=== PATIENT | female | born 1955 | race Caucasian/White ===

== ENCOUNTER 2024-07-12 13:32 | Outpatient (OUT) | payer MEDICARE, SELFPAY ==
--- NOTE | 2024-07-12 13:20 | PM.WCHP ---
Wound Care H&P: HPI History of Present Illness Narrative: Ms. Cronin is a very pleasant 68-year-old female with history of previous ankle trauma who presents for routine nail care. The patient states her toenails are thick and she is unable to trim them on her own. She feels as though the great toes are ingrown in the medial borders bilaterally. Exam Narrative: Exam Narrative: Derm: Skin is diffusely dry, thin, and shiny. Toenails 1 through 10 are elongated with ingrowing of the great toenails and the medial nail borders. No evidence of paronychia. Toenails 2 through 5 are thickened and mycotic on both feet with subungual debris. Vascular: DP pulses are 2/4 bilaterally. PT pulses are nonpalpable bilaterally. Capillary refills less than 3 seconds and toes are nice and warm to touch. Superficial varicosities are present. There is 3+ nonpitting edema of bilateral lower legs and ankles. Digital hair is absent bilaterally. Neuro: Protective sensation intact to 5/5 areas tested with a monofilament on each foot. Vibratory sensation is intact bilaterally. Achilles deep tendon reflex is 1+ bilaterally. Musculoskeletal: Healed surgical scars noted on bilateral ankles. No pain with palpation of the feet or ankles. Assessment and Plan Assessment and Plan (1) Tinea unguium: (2) Diminished pulses in lower extremity: (3) Nail dystrophy: Plan Routine nail care performed. Follow-up in 3 months or as needed. Acute Procedures Podiatry Nail Debridement Class B Findings Absent posterior tibial pulse: bilateral Advanced trophic changes as evidenced by any three of the following: decreased hair growth, nail changes (thickening) and skin texture (thin or shiny) Class C Findings Claudication: No Temperature changes: No Edema: Yes Nail debridement paresthesia (abnormal spontaneous sensations in the feet): No Burning: No Qualifies If: Qualifiers If:: A patient qualifies for nail debridement if they have: 1 class A finding (Q7) 2 class B findings (Q8) OR 1 class B & 2 class C findings in addition to a primary condition (Q9) Nail Procedure Nail Procedure Nail procedure: other (Toenail debridement toenails 1 through 10) Location (toes): left and right Procedure successful: Yes Patient tolerated procedure: well and no complications Additional comments: Toenails 1 through 10 were sharply debrided with nail nippers without incident. The nails were trimmed in a slant back fashion on both great toes medial nail borders.
== END 2024-07-12 13:33 | disposition home or self-care (01) ==
LOC: WC 13:32
PROVIDERS: PCP Physician Assistant; Visit Provider Physician Assistant
DX: B35.1 Tinea unguium (principal); L60.3 Nail dystrophy; L60.8 Other nail disorders; I70.213 Atherosclerosis of native arteries of extremities with intermittent claudication, bilateral legs
CPT/HCPCS: 11721

== ENCOUNTER 2024-10-04 14:38 | Outpatient (OUT) | payer MEDICARE, SELFPAY ==
--- NOTE | 2024-10-04 15:10 | PM.WCHP ---
Wound Care H&P: HPI History of Present Illness Narrative: Ms. Cronin is a very pleasant 68-year-old female with history of previous ankle trauma who presents for routine nail care. The patient states her toenails are thick and she is unable to trim them on her own due to stiffness in the left ankle. She complains of a painful callus beneath the 5th met head on the left which she pares with an deshaun board. Exam Narrative: Exam Narrative: Derm: Skin is diffusely dry, thin, and shiny. Toenails 1 through 10 are elongated with ingrowing of the great toenails and the medial nail borders. No evidence of paronychia. Toenails 2 through 5 are thickened and mycotic on both feet with subungual debris. Thin callus beneath the 5th met head on the left. Intact skin at base. Vascular: DP pulses are 2/4 bilaterally. PT pulses are nonpalpable bilaterally. Capillary refills less than 3 seconds and toes are nice and warm to touch. Superficial varicosities are present. There is 3+ nonpitting edema of bilateral lower legs and ankles. Digital hair is absent bilaterally. Neuro: Protective sensation intact to 5/5 areas tested with a monofilament on each foot. Vibratory sensation is intact bilaterally. Achilles deep tendon reflex is 1+ bilaterally. Musculoskeletal: Healed surgical scars noted on bilateral ankles. No pain with palpation of the feet or ankles. Assessment and Plan Assessment and Plan (1) Tinea unguium: (2) Diminished pulses in lower extremity: (3) Nail dystrophy: (4) Bilateral lower extremity edema: Plan Routine nail care performed. Follow-up in 3 months or as needed. Acute Procedures Podiatry Nail Debridement Class B Findings Absent posterior tibial pulse: bilateral Advanced trophic changes as evidenced by any three of the following: decreased hair growth, nail changes (thickening) and skin texture (thin or shiny) Class C Findings Claudication: No Temperature changes: No Edema: Yes Nail debridement paresthesia (abnormal spontaneous sensations in the feet): No Burning: No Qualifies If: Qualifiers If:: A patient qualifies for nail debridement if they have: 1 class A finding (Q7) 2 class B findings (Q8) OR 1 class B & 2 class C findings in addition to a primary condition (Q9) Nail Procedure Nail Procedure Nail procedure: other (Toenail debridement toenails 1 through 10) Location (toes): left and right Procedure successful: Yes Patient tolerated procedure: well and no complications Additional comments: Toenails 1 through 10 were sharply debrided with nail nippers without incident. Callus beneath the 5th met head on the left was pared using a #15 blade without incident. Skin is intact at base. She noted pain relief post procedure.
== END 2024-10-04 14:39 | disposition home or self-care (01) ==
LOC: WC 14:38
PROVIDERS: Visit Provider Physician Assistant
DX: B35.1 Tinea unguium (principal); R29.898 Other symptoms and signs involving the musculoskeletal system; L60.8 Other nail disorders; R60.0 Localized edema; L84 Corns and callosities
CPT/HCPCS: 11721

== ENCOUNTER 2025-01-03 13:31 | Outpatient (OUT) | payer MEDICARE, SELFPAY ==
--- OUTSIDE RECORDS SUMMARY | 2024-12-19 10:03 | XMS_ITS | Encounter Summary ---
Author Organization [facility] Address [address] [place] [address] Phone Care Team Providers Care Sleeper Cutter Name Role Phone Margarita Lechuga DO Primary Care Provider [phone] Reason for Referral * Imaging (Routine) - AuthorizedSpecialtyDiagnoses / ProceduresReferred By ContactReferred To ContactRadiology Diagnoses Primary osteoarthritis of right hip Tear of gluteus medius tendon, initial encounter Procedures MR hip right wo IV contrast Adelaide Hearn DO [address] [place] [address] Phone: tel: fax: Referral IDStatusReasonStart DateExpiration DateVisits RequestedVisits [id number] Perform Procedure Reason for Visit * Imaging (Routine) - AuthorizedSpecialtyDiagnoses / ProceduresReferred By ContactReferred To ContactRadiology Diagnoses Primary osteoarthritis of right hip Tear of gluteus medius tendon, initial encounter Procedures MR hip right wo IV contrast Adelaide Hearn DO [address] [place] [address] Phone: tel: fax: Referral IDStatusReasonStart DateExpiration DateVisits RequestedVisits [id number] Perform Procedure [id number] Encounter Details DateTypeDepartmentCare Team (Latest Contact Info)Kdirqypmkeo58/22/2025 11:03 AM EDT - 12/19/2024 11:59 PM EDTHospital Encounter [facility] [place] [address] [place] [address] Primary osteoarthritis of right hip; Tear of gluteus medius tendon, initial encounter Discharge Disposition: Home Social History Tobacco UseTypesPacks/DayYears UsedDateSmoking Tobacco: NeverSmokeless Tobacco: NeverAlcohol UseStandard Drinks/WeekCommentsNot Currently0 (1 standard drink = 0.6 oz pure alcohol)CommentsUnknownSex and Gender InformationValueDate RecordedSex Assigned at GolgcOquuei66/12/2024 7:26 PM EDTLegal SexFemale 01/22/2022 4:26 PM ESTGender UbmaehvjOaaorl04/12/2024 7:26 PM EDTSexual OrientationNot on filedocumented as of this encounter Functional Status * Communicable Disease ScreeningQuestionAnswerDate of AssessmentAuthorDo you have any of the following new or worsening symptoms?None of these12/19/2024 11:01 AM Mallorie Hebert documented as of this encounter Medications at Time of Discharge MedicationSigDispense QuantityRefillsLast FilledStart DateEnd Date atorvastatin (Lipitor) 40 mg tablet Take 1 tablet (40 mg) by mouth once daily. calcium citrate/vitamin D3 (CALCET CREAMY BITES ORAL) Take 2 tablets by mouth early in the morning.. diclofenac sodium (Voltaren) 1 % gel gel Apply 4.5 inches (1 Application) topically once daily as needed. diphenoxylate-atropine (LomotiL) 2.5-0.025 mg tablet Take 1 tablet by mouth once daily as needed.02/09/2022 ergocalciferol (Vitamin D-2) 1.25 MG (70397 UT) capsule furosemide (Lasix) 40 mg tablet Take 1 tablet (40 mg) by mouth once daily.07/17/2024 hydrocortisone (Proctozone-HC) 2.5 % rectal cream hydroxychloroquine (Plaquenil) 200 mg tablet Take 1 tablet (200 mg) by mouth once daily. loperamide (Imodium) 2 mg capsule Take 1 capsule (2 mg) by mouth once daily.06/02/2023 metoprolol tartrate (Lopressor) 25 mg tablet Take 1 tablet (25 mg) by mouth 2 times a day. multivitamin with minerals (Adults Multivitamin) tablet Take 1 tablet by mouth once daily.02/09/2022 naproxen sodium (Aleve) 220 mg capsule pantoprazole (ProtoNix) 40 mg EC tablet Take 1 tablet (40 mg) by mouth once daily in the morning. Take before meals. Do not crush, chew, orsplit. rOPINIRole (Requip) 0.5 mg tablet Take 3 tablets (1.5 mg) by mouth 2 times a day. sertraline (Zoloft) 100 mg tablet 07/17/2024documented as of this encounter Plan of Treatment DateTypeDepartmentCare Team (Latest Contact Info)Egjzsjncban42/07/2025 10:20 AM ESTOffice Visit [address] [address] Adelaide Hearn, DO [address] [facility] [address] [place] [address] 01/08/2025 11:30 AM ESTTreatment [address] [place] [address] [place] [address] [facility] [address] [place] [address] 01/15/2025 11:30 AM ESTTreatment [facility] [address] [facility] [address] [place] [address] [place] [address] [facility] [address] [place] [address] 02/12/2025 9:20 AM ESTOffice Visit [place] [address] [facility] 5th [place] [address] [place] [address] Department [place] [address] documented as of this encounter Procedures Procedure NamePriorityDate/TimeAssociated DiagnosisCommentsMR HIP RIGHT WO IV RYFRNLQSLrnlvtb31/22/2025 12:48 PM EDT Primary osteoarthritis of right hip Tear of gluteus medius tendon, initial encounter documented in this encounter Results * MR hip right wo IV contrast (12/19/2024 12:48 PM EDT)Anatomical Region LateralityModalityMusculoskeletal, HipRightMagnetic ResonanceSpecimen (Source) Anatomical Location / LateralityCollection Method / VolumeCollection Time Received Time12/19/2024 2:58 PM EDT1 2:58 PM EDT Impressions 12/19/2024 2:56 PM EDT 1. Severe right hip osteoarthrosis with subchondral insufficiency fracture. 2. Trace right hip joint effusion. 3. Mild left hip osteoarthrosis. ? I personally reviewed the images/study and I agree with the findings as stated. This study was interpreted at [facility], [place], [place]. ?? MACRO: None ?? Signed by: Tristan Carpenter 12/19/2024 2:56 PM Dictation workstation: ?? [id number] Narrative 12/19/2024 2:56 PM EDT Interpreted By: Tristan Carpenter and Nakamoto Kent STUDY: MRI of the pelvis and right hip ??without IV contrast; ??12/19/2024 12:48 pm ?? INDICATION: Signs/Symptoms:glute med tendon tear. ?? ,M16.11 Unilateral primary osteoarthritis, right hip,S76.019A Strain of muscle, fascia and tendon of unspecified hip, initial encounter ?? COMPARISON: Right hip radiograph 08/14/2024, CT abdomen and pelvis 11/21/2022. ?? ACCESSION NUMBER(S): [id number] ?? ORDERING CLINICIAN: ADELAIDE HEARN ?? TECHNIQUE: MR imaging of the pelvis and right hip was obtained ??without IV contrast. ?? FINDINGS: TENDONS: The insertions of the gluteus medius and gluteus minimus tendons are normal. The insertion of the iliopsoas tendon is normal. The visualized hamstring tendon origin is normal. The adductor tendons are intact. ?? JOINTS: The hip joint articular cartilage demonstrates moderate to severe thinning of the right and mild thinning of the left. A trace right hip joint effusion is noted. Truncation of the right anterior superior acetabular labrum. There is no evidence of avascular necrosis. ?? OSSEOUS STRUCTURES: No focal marrow replacing lesions are identified. There is a linear focus of T1 hypointense signal along the right femoral head (series 6, image 27) with associated slight subchondral flattening. There is associated surrounding T2 hyperintense signal within the right femoral head (series 5, image 27). Findings are suggestive of a subchondral insufficiency fracture. ?? SOFT TISSUES: No muscle atrophy or tear is seen. ?? INTERNAL ORGANS: Evaluation of the internal organs of the pelvis is limited on this small field of view study tailored for evaluation of the musculoskeletal system. No gross abnormality is seen in the pelvic organs. Stable prominent inguinal lymph nodes measuring up to 1.0 cm that are stable compared to prior CT abdomen and pelvis 11/21/2022. ?? Procedure Note Tristan Carpenter MD - 12/19/2024 Interpreted By: Tristan Carpenter and Nakamoto Kent STUDY: MRI of the pelvis and right hip without IV contrast; 12/19/2024 12:48 pm INDICATION: Signs/Symptoms:glute med tendon tear. ,M16.11 Unilateral primary osteoarthritis, right hip,S76.019A Strain of muscle, fascia and tendon of unspecified hip, initial encounter COMPARISON: Right hip radiograph 08/14/2024, CT abdomen and pelvis 11/21/2022. ACCESSION NUMBER(S): [id number] ORDERING CLINICIAN: ADELAIDE HEARN TECHNIQUE: MR imaging of the pelvis and right hip was obtained without IV contrast. FINDINGS: TENDONS: The insertions of the gluteus medius and gluteus minimus tendons are normal. The insertion of the iliopsoas tendon is normal. The visualized hamstring tendon origin is normal. The adductor tendons are intact. JOINTS: The hip joint articular cartilage demonstrates moderate to severe thinning of the right and mild thinning of the left. A trace right hip joint effusion is noted. Truncation of the right anterior superior acetabular labrum. There is no evidence of avascular necrosis. OSSEOUS STRUCTURES: No focal marrow replacing lesions are identified. There is a linear focus of T1 hypointense signal along the right femoral head (series 6, image 27) with associated slight subchondral flattening. There is associated surrounding T2 hyperintense signal within the right femoral head (series 5, image 27). Findings are suggestive of a subchondral insufficiency fracture. SOFT TISSUES: No muscle atrophy or tear is seen. INTERNAL ORGANS: Evaluation of the internal organs of the pelvis is limited on this small field of view study tailored for evaluation of the musculoskeletal system. No gross abnormality is seen in the pelvic organs. Stable prominent inguinal lymph nodes measuring up to 1.0 cm that are stable compared to prior CT abdomen and pelvis 11/21/2022. IMPRESSION: 1. Severe right hip osteoarthrosis with subchondral insufficiency fracture. 2. Trace right hip joint effusion. 3. Mild left hip osteoarthrosis. I personally reviewed the images/study and I agree with the findings as stated. This study was interpreted at [place], [place]. MACRO: None Signed by: Tristan Carpenter 12/19/2024 2:56 PM Dictation workstation: [id number] Authorizing ProviderResult TypeResult StatusAdelaide Hearn [facility]ED[facility] Final Result documented in this encounter Visit Diagnoses Diagnosis Primary osteoarthritis of right hip Tear of gluteus medius tendon, initial encounter Tendinopathy of right gluteal region- Primary Primary osteoarthritis of right hip Right hip pain Pain in joint, pelvic region and thigh Impaired gait and mobility History of fall Personal history of fall Tendinopathy of right gluteal region- Primary Primary osteoarthritis of right hip Right hip pain Pain in joint, pelvic region and thigh Impaired gait and mobility History of fall Personal history of fall documented in this encounter Additional Health Concerns AssessmentNoted TimeA fall risk assessment has been completed for the patient 03/02/2024 8:28 AM ESTdocumented as of this encounter Care Teams Team MemberRelationshipSpecialtyStart [place] [address] [address] PCP - Lxppnou53/1/22documented as of this encounter
--- OUTSIDE RECORDS SUMMARY | 2025-01-01 11:30 | XMS_ITS | Encounter Summary ---
Author Organization [facility] Address [address] [place] [address] Phone Care Team Providers Care Mercury Purifier Name Role Phone Margarita Lechuga DO Primary Care Provider [phone] Reason for Visit * ReasonCommentsPT Treatment Encounter Details DateTypeDepartmentCare Team (Latest Contact Info)Rjswbjjljdy11/04/2025 11:[address] [address] [place] [address] [place] [address] [place] [address] Tendinopathy of right gluteal region (Primary Dx); Primary osteoarthritis of right hip; Right hip pain; Impaired gait and mobility; History of fall Discharge Disposition: Home Social History Tobacco UseTypesPacks/DayYears UsedDateSmoking Tobacco: NeverSmokeless Tobacco: NeverAlcohol UseStandard Drinks/WeekCommentsNot Currently0 (1 standard drink = 0.6 oz pure alcohol)CommentsUnknownSex and Gender InformationValueDate RecordedSex Assigned at UoadmVitexk12/12/2024 7:26 PM EDTLegal SexFemale 01/22/2022 4:26 PM ESTGender PbbcsztqCzugfs08/12/2024 7:26 PM EDTSexual OrientationNot on filedocumented as of this encounter Progress Notes * Narendra Haines, PT - 01/01/2025 11:30 AM EST Physical Therapy Treatment Patient Name: Emily Cronin Date of : 1955 Encounter Date: 01/01/2025 Time Entry: Time Calculation Start Time: 1114 Stop Time: 1156 Time Calculation (min): 42 min PT Therapeutic Procedures Time Entry Aquatic Therapy Time Entry: 42 Rehab Insurance Information: Visit Count: 2 Auth Required: No Additional Authorization/Insurance Information: 2024 30 COPAY, 0 COINS, 0 DED, 3300 OOP MAX, VS MEDNEC, NO AUTH Rehab Falls Risk Assessment: Problem List Items Addressed This Visit ICD-10-CM Right hip pain M25.551 Tendinopathy of right gluteal region - Primary M67.951 Primary osteoarthritis of right hip M16.11 Impaired gait and mobility R26.89 History of fall Z91.81 Subjective My hip is pretty good in the morning, but as the day goes on it gets worse.. Pain reported as 2. Objective Activities Treatment Times: PT Therapeutic Procedures Time Entry Aquatic Therapy Time Entry: 42 Treatments: Therapeutic Exercise (73258): Manual Therapy (92452): Neuromuscular Re-education (51144): Therapeutic Activitity (52387): Aquatic Therapy (35414): 43 Min 3 units. Forward walking in lazy [place] with current: 4 laps. 4 cool down laps with yellow dumbbell pushing and pulling. Mini Squats: 2 x 10: (cueing for pain free ROM). Hip circles: 2 x 10 (B) (CW/CCW) HS curls 2 x 10 (B) Hip ABD 2 x 10 (B) Hip FLX 2 x 10 Hip EXT 2 x 10 (B) Standing may 17 (B UE support) Standing Bicycle kicks: (cueing for reduced range). 2 x 10 (B) Heel Raise: 20 Horizontal shoulder ABD/ADD: 20 x Closed hands Shoulder ABD/ADD: 20 x closed hands Shoulder FLX/EXT: 20 closed hand Shoulder IR/ER: 20 Closed hands HEP: Assessment/Plan Assessment: Initiated aquatic therapy this session, focusing on pain modulation, ambulatory endurance, ballanceand LE strengthening. Pt reports mild hip pain at the start of the session. [facility] safe and appropriate movements. Most challenging exercise this session, was hip FLX, cueing for reduced range in which the pt reported favorable response. Pt is making progresstowards goals and would continue to benefit from skilled PT at this time. Aquatic PT is required due to, buoyancy of water reduced weight bearing and decreased LE and spinalloading, allowing for more freedom of movement and promotes improved ability to perform functional tasks. The viscosity of water which is more than 700x that of air, allowed increased reaction time, in turn allowing advanced balance activities to be safely performed and allow patient to be challenged beyond limited of stability without fear of falling; provides the opportunity to work on balance in a safe environment. The hydrostatic pressure of water facilitates the reduction of edema in the lower extremities, allowing for greater ease of movement. Aquatics d/t cardio vascular benefits including: improved cardiovascular efficiency including increased stroke volume, decreased HR, and decreased blood pressure with increased cardiac output allowing patient to achieve cardiovascular training effect with less work load. Water promotes a rapid return to movement after surgery due to a low impact environment. Aquatics to support upright posture during postural retraining and strengthening. Aquatics allow patient to work on gait with less assistance or without assistive device improving posture and ease of gait training/conditioning. Plan: Continue Aquatic Therapy. Next Session Considerations: Check tolerance to previous session. documented in this encounter Plan of Treatment DateTypeDepartmentCare Team (Latest Contact Info)Wrsgwnfutew45/07/2025 10:20 AM ESTOffice Visit [facility] [address] [place] [phone] Roger Hearn T, DO [address] [facility] [address] [place] [address] 01/08/2025 11:[address] [facility] [address] [facility] [address] [place] [address] [place] [address] [facility] [address] [place] [address] 01/15/2025 11:[address] [facility] [address] [place] [phone] [place] [address] [place] [address] 02/12/2025 9:20 AM ESTOffice Visit [facility] [address] [facility] 5th [place] [address] [place] [address] [place] [address] documented as of this encounter Visit Diagnoses Diagnosis Tendinopathy of right gluteal region- Primary Primary [...] Team MemberRelationshipSpecialtyStart [place] [address] [place] [address] PCP - Knexoku71/1/22documented as of this encounter
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
--- OUTSIDE RECORDS SUMMARY | 2025-01-03 13:34 | XMS_ITS | Clinical Summary ---
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 posterior portal vein branches). Spleen: No focal splenic lesions. ??Spleen is normal in size. Kidneys: Kidneys enhance symmetrically without hydroureteronephrosis or enhancing renal masses. Adrenal glands: Adrenal glands are normal. Lymph nodes: No lymphadenopathy by size criteria. Mesentery: No ascites. Osseous structures: No aggressive osseous lesions. Procedure Note Provider, [facility] - 11/07/2024 * * *Final Report* * * DATE OF EXAM: Nov 06 2024 1:50PM [facility] 0280 - MRI 3D POST PROCESSING / PROCEDURE REASON: Pancreas cyst (HCC) * * * * Physician Interpretation * * * * MRI OF THE ABDOMEN WITHOUT AND WITH CONTRAST: CLINICAL HISTORY: Pancreas cyst (HCC) . COMPARISON: MRI 09/07/2023 TECHNIQUE: Magnet: 3.0T scanner. Multiplanar MRI of the abdomen with multiple sequences, including both pre- and post-contrast imaging. Additional MR cholangiopancreatography sequences were performed. Image post-processing {Maximum intensity Projection (MIP)} images were created at an off-line workstation by the interpreting physician or with concurrent physician supervision, with images created, reviewed and archived. Contrast: IV: 10 ml of Elucirem RESULT: Pancreas: Pancreas is normal in precontrast T1 signal intensity with no solid masses or main pancreatic duct dilatation. Essentially unchanged 6 mm cystic lesion pancreatic tail (3:26). No worrisome features. Biliary: At least 3 stones in the distal common bile duct resulting in mild intrahepatic and extrahepatic biliary duct dilation. Common bile duct is dilated measuring up to 7 mm. Gallbladder: Cholelithiasis without gallbladder wall thickening. Liver: No enhancing mass. Unchanged benign cysts. No MR findings of hepatic steatosis. No thrombus in the portal venous system (splenic vein, main portal vein, left and right anterior and right posterior portal vein branches). Spleen: No focal splenic lesions. Spleen is normal in size. Kidneys: Kidneys enhance symmetrically without hydroureteronephrosis or enhancing renal masses. Adrenal glands: Adrenal glands are normal. Lymph nodes: No lymphadenopathy by size criteria. Mesentery: No ascites. Osseous structures: No aggressive osseous lesions. IMPRESSION IMPRESSION: Unchanged 6 mm cystic lesion pancreatic tail. No worrisome features. Choledocholithiasis resulting in mild intrahepatic and extrahepatic biliary ductal dilation. ERCP is recommended. ACTIONABLE RESULT: FOLLOW-UP Acuity: Actionable Findings: Pancreas/Biliary Routing Code: PB_1 Recommendation: Unlisted Recommendation (see report) Time Frame: At the discretion of the clinical team. COMMUNICATION: Results will be communicated with the ordering provider via [employer] staff message or phone message by [facility] within 2 business days of report finalization. --END OF FINDING-- Manufacturing Manager: ELIEZER Transcribe Date/Time: Nov 07 2024 9:34A Dictated by : JOCE DENNIS MD This examination was interpreted and the report reviewed and electronically signed by: JOCE DENNIS MD on Nov 07 2024 9:42AM EST Authorizing ProviderResult TypeResult StatusMousab Tabbaa I, MDMRI-PAMAFinal Result * (ABNORMAL) MRI PANC/ZAINA WO/W IVCON (11/06/2024 1:50 PM EDT)ComponentValueRef RangeTest MethodAnalysis TimePerformed AtPathologist SignatureRadiology Result ACTIONABLE(Actionable)[facility] RADIOLOGYComment: This report contains an incidental or actionable finding. ??This finding may be a new finding separate from the reason your provider ordered the imaging test or it may be an already known finding that needs additional or continued follow-up. Because of this incidental or actionable finding, you may need another test (imaging or a different type of test). ??Please contact your provider for the next steps. Anatomical RegionLateralityModalityAbdomenMagnetic ResonanceSpecimen (Source) Anatomical Location / LateralityCollection Method / VolumeCollection Time Received Time11/06/2024 1:50 PM EDT Impressions 11/07/2024 9:44 AM EDT IMPRESSION: Unchanged 6 mm cystic lesion pancreatic tail. ??No worrisome features. Choledocholithiasis resulting in mild intrahepatic and extrahepatic biliary ductal dilation. ??ERCP is recommended. ACTIONABLE RESULT: FOLLOW-UP Acuity: Actionable Findings: Pancreas/Biliary Routing Code: ??PB_1 Recommendation: Unlisted Recommendation (see report) Time Frame: At the discretion of the clinical team. COMMUNICATION: Results will be communicated with the ordering provider via [employer] staff message or phone message by [facility] within 2 business days of report finalization. --END OF FINDING-- Manufacturing Manager: ELIEZER ?? Transcribe Date/Time: Nov 07 2024 ??9:34A Dictated by : JOCE DENNIS MD This examination was interpreted and the report reviewed and electronically signed by: JOCE DENNIS MD on Nov 07 2024 ??9:42AM ??EST Narrative 11/07/2024 9:44 AM EDT * * *Final Report* * * DATE OF EXAM: Oct ??2024 ??1:50PM ?? [facility] ?? 0730 ??- ??MRI PANC/ZAINA WO/W IVCON ??/ PROCEDURE REASON: Pancreas cyst (HCC) ? * * * * Physician Interpretation * * * * MRI OF THE ABDOMEN WITHOUT AND WITH CONTRAST: CLINICAL HISTORY: Pancreas cyst (HCC) ?? . COMPARISON: MRI 09/07/2023 TECHNIQUE: Magnet: ??3.0T scanner. Multiplanar MRI of the abdomen with multiple sequences, including both pre- and post-contrast imaging. ??Additional MR cholangiopancreatography sequences were performed. Image post-processing {Maximum intensity Projection (MIP)} images were created at an off-line workstation by the interpreting physician or with concurrent physician supervision, with images created, reviewed and archived. Contrast: IV: ??10 ml of Elucirem RESULT: Pancreas: Pancreas is normal in precontrast T1 signal intensity with no solid masses or main pancreatic duct dilatation. Essentially unchanged 6 mm cystic lesion pancreatic tail (3:26). ??No worrisome features. Biliary: At least 3 stones in the distal common bile duct resulting in mild intrahepatic and extrahepatic biliary duct dilation. ??Common bile duct is dilated measuring up to 7 mm. Gallbladder: Cholelithiasis without gallbladder wall thickening. Liver: No enhancing mass. ??Unchanged benign cysts. ??No MR findings of hepatic steatosis. No thrombus in the portal venous system (splenic vein, main portal vein, left and right anterior and right posterior portal vein branches). Spleen: No focal splenic lesions. ??Spleen is normal in size. Kidneys: Kidneys enhance symmetrically without hydroureteronephrosis or enhancing renal masses. Adrenal glands: Adrenal glands are normal. Lymph nodes: No lymphadenopathy by size criteria. Mesentery: No ascites. Osseous structures: No aggressive osseous lesions. Procedure Note Provider, [facility] - 11/07/2024 * * *Final Report* * * DATE OF EXAM: Nov 06 2024 1:50PM [facility] 0730 - MRI PANC/ZAINA WO/W IVCON / PROCEDURE REASON: Pancreas cyst (HCC) * * * * Physician Interpretation * * * * MRI OF THE ABDOMEN WITHOUT AND WITH CONTRAST: CLINICAL HISTORY: Pancreas cyst (HCC) . COMPARISON: MRI 09/07/2023 TECHNIQUE: Magnet: 3.0T scanner. Multiplanar MRI of the abdomen with multiple sequences, including both pre- and post-contrast imaging. Additional MR cholangiopancreatography sequences were performed. Image post-processing {Maximum intensity Projection (MIP)} images were created at an off-line workstation by the interpreting physician or with concurrent physician supervision, with images created, reviewed and archived. Contrast: IV: 10 ml of Elucirem RESULT: Pancreas: Pancreas is normal in precontrast T1 signal intensity with no solid masses or main pancreatic duct dilatation. Essentially unchanged 6 mm cystic lesion pancreatic tail (3:26). No worrisome features. Biliary: At least 3 stones in the distal common bile duct resulting in mild intrahepatic and extrahepatic biliary duct dilation. Common bile duct is dilated measuring up to 7 mm. Gallbladder: Cholelithiasis without gallbladder wall thickening. Liver: No enhancing mass. Unchanged benign cysts. No MR findings of hepatic steatosis. No thrombus in the portal venous system (splenic vein, main portal vein, left and right anterior and right posterior portal vein branches). Spleen: No focal splenic lesions. Spleen is normal in size. Kidneys: Kidneys enhance symmetrically without hydroureteronephrosis or enhancing renal masses. Adrenal glands: Adrenal glands are normal. Lymph nodes: No lymphadenopathy by size criteria. Mesentery: No ascites. Osseous structures: No aggressive osseous lesions. IMPRESSION IMPRESSION: Unchanged 6 mm cystic lesion pancreatic tail. No worrisome features. Choledocholithiasis resulting in mild intrahepatic and extrahepatic biliary ductal dilation. ERCP is recommended. ACTIONABLE RESULT: FOLLOW-UP Acuity: Actionable Findings: Pancreas/Biliary Routing Code: PB_1 Recommendation: Unlisted Recommendation (see report) Time Frame: At the discretion of the clinical team. COMMUNICATION: Results will be communicated with the ordering provider via [employer] staff message or phone message by [facility] within 2 business days of report finalization. --END OF FINDING-- Manufacturing Manager: ELIEZER Transcribe Date/Time: Nov 07 2024 9:34A Dictated by : JOCE DENNIS MD This examination was interpreted and the report reviewed and electronically signed by: JOCE DENNIS MD on Nov 07 2024 9:42AM EST Authorizing ProviderResult TypeResult StatusMousab Tabbaa I, MDMRI-PAMAFinal Result * LIPID PANEL BASIC (10/02/2024 8:58 AM EDT)ComponentValueRef RangeTest Method Analysis TimePerformed AtPathologist SignatureCholesterol, Bviuz490<200 mg/dL 10/02/2024 2:32 PM [facility]: <200 mg/dL, Desirable 200-239 mg/dL, Borderline high >239 mg/dL, High Bsqinsmkthko56<150 mg/dL10/02/2024 2:32 PM [facility] Comment: <150 mg/dL, Normal 150-199 mg/dL, Borderline high 200-499 mg/dL, High >499 mg/dL, Very high HDL Qcjkmnffxvk50>39 mg/dL10/02/2024 2:32 PM [facility] Comment: 40-59 mg/dL, Acceptable >59 mg/dL, High: Negative risk factor for coronary heart disease <40 mg/dL, Low: Positive risk factor for coronary heart disease LDL Cholesterol, Kfyzcyfppi30<100 mg/dL10/02/2024 2:32 PM [facility]: <100 mg/dL, Optimal 100-129 mg/dL, Near optimal/above optimal 130-159 mg/dL, Borderline high 160-189 mg/dL, High >189 mg/dL, Very high Secondary prevention optimal LDL Cholesterol levels are recommended to be <70 mg/dL LDL cholesterol is calculated using the Mora-NIH equation. Non HDL Ysuqlzvdono29<130 mg/dL10/02/2024 2:32 PM [facility]: <130 mg/dL, Optimal 130-159 mg/dL, Near optimal/above optimal 160-189 mg/dL, Borderline high 190-219 mg/dL, High >219 mg/dL, Very high Secondary prevention optimal non HDL Cholesterol levels are recommended to be <100 mg/dL VLDL Cholesterol9<30 mg/dL10/02/2024 2:32 PM [facility] TC:HDL Ratio1.64<5.10010/02/2024 2:32 PM [facility] LDL:HDL Ratio0.46<2.54010/02/2024 2:32 PM [facility] Comment: Reference: 1. National Cholesterol Education Program ATP III Guideline At-A-Glance Quick Desk Reference: National Heart, Lung, and Blood [place]. National Institutes of Health. 2001: NIH Publication No. 01-3305. 2. An International Atherosclerosis Society position paper: global recommendations for the management of dyslipidemia: executive summary, Atherosclerosis. 2014: 232(2):410-413. Fasting Ckxq48zxn26/05/2025 2:32 PM [facility] LABSpecimen (Source)Anatomical Location / LateralityCollection Method / VolumeCollection TimeReceived TimeBloodBLOOD SPECIMEN / UnknownVenipuncture / Tbxitfu6310/02/2024 8:58 AM EDT10/02/2024 8:58 AM EDT Narrative Authorizing ProviderResult TypeResult StatusKristin Lechuga DOLABORATORYFinal ResultPerforming OrganizationAddressCity/State/ZIP CodePhone Number [facility] [address] [place] [phone], * DAVE SCREENING W BEKAH (07/19/2024 2:39 PM EDT)Anatomical RegionLaterality ModalityBreastOtherSpecimen (Source)Anatomical Location / LateralityCollection Method / VolumeCollection TimeReceived Time07/19/2024 2:39 PM EDT Impressions 07/20/2024 1:50 PM EDT IMPRESSION: There is no mammographic evidence of malignancy in either breast. Routine screening mammogram is recommended. Annual mammogram will be due in 1 year. BI-RADS Category 1: Negative RISK: Based on the Tyrer-Cuzick (TC) risk assessment model, this patient has a 10.9% ??lifetime risk of developing breast cancer, meaning they are at average risk for developing breast cancer. However, this is only an estimate based on available history provided on the patient's questionnaire. We encourage all patients to talk with their providers about these results, further recommendations for managing breast health, and appropriate supplemental screening options if the patient has dense breast tissue. Interpreting Radiologist: Carter Tamayo M.D. Electronically signed on: 07/20/2024 Manufacturing Manager: KELBY Transcribe Date/Time: Jul 19 2024 ??2:25P Dictated by: CARTER TAMAYO MD This examination was interpreted and the report reviewed and electronically signed by: CARTER TAMAYO MD on Jul 20 2024 ??1:45PM ??EST Narrative 07/20/2024 1:50 PM EDT * * *Final Report* * * DATE OF EXAM: Jul 19 2024 ??2:39PM ?? [facility] ?? 0582 ??- ??DAVE SCREENING W BEKAH ??/ PROCEDURE REASON: Encounter for screening mammogram for breast cancer ? * * * * Physician Interpretation * * * * RESULT: [facility]- [facility]OM[facility] RADIOLOGY [facility] [address] [place] [address] #[id number] - DAVE SCREENING W BEKAH HISTORY: 68 year-old patient seen for screening. Patient is asymptomatic in both breasts. Patient states no personal history of breast cancer. COMPARISON STUDIES: The present examination has been compared to prior imaging studies dated 07/01/2015 (mammogram), 07/16/2016 (mammogram), 07/22/2017 (mammogram), 11/17/2020 (mammogram) and 07/01/2023 (mammogram). MAMMOGRAM TECHNIQUE: The study was acquired using full field digital technology and interpreted from soft copy. Digital Breast Tomosynthesis (DBT) images were obtained and used to assist in the interpretation of this examination. MAMMOGRAM FINDINGS: The breasts are heterogeneously dense, which may obscure small masses. No suspicious masses, calcifications or other abnormalities are seen in either breast. There are no significant interval changes. Procedure Note Provider, [facility] [place] - 07/20/2024 * * *Final Report* * * DATE OF EXAM: Jul 19 2024 2:39PM [facility] 0582 - [facility] SCREENING W BEKAH / PROCEDURE REASON: Encounter for screening mammogram for breast cancer * * * * Physician Interpretation * * * * RESULT: [facility] RAD[facility]OLOG[facility] [address] [place] [address] #[id number] - [facility] SCREENING W BEKAH HISTORY: 68 year-old patient seen for screening. Patient is asymptomatic in both breasts. Patient states no personal history of breast cancer. COMPARISON STUDIES: The present examination has been compared to prior imaging studies dated 07/01/2015 (mammogram), 07/16/2016 (mammogram), 07/22/2017 (mammogram), 11/17/2020 (mammogram) and 07/01/2023 (mammogram). MAMMOGRAM TECHNIQUE: The study was acquired using full field digital technology and interpreted from soft copy. Digital Breast Tomosynthesis (DBT) images were obtained and used to assist in the interpretation of this examination. MAMMOGRAM FINDINGS: The breasts are heterogeneously dense, which may obscure small masses. No suspicious masses, calcifications or other abnormalities are seen in either breast. There are no significant interval changes. IMPRESSION IMPRESSION: There is no mammographic evidence of malignancy in either breast. Routine screening mammogram is recommended. Annual mammogram will be due in 1 year. BI-RADS Category 1: Negative RISK: Based on the Tyrer-Cuzick (TC) risk assessment model, this patient has a 10.9% lifetime risk of developing breast cancer, meaning they are at average risk for developing breast cancer. However, this is only an estimate based on available history provided on the patient's questionnaire. We encourage all patients to talk with their providers about these results, further recommendations for managing breast health, and appropriate supplemental screening options if the patient has dense breast tissue. Interpreting Radiologist: Carter Tamayo M.D. Electronically signed on: 07/20/2024 Manufacturing Manager: KELBY Transcribe Date/Time: Jul 19 2024 2:25P Dictated by: CARTER TAMAYO MD This examination was interpreted and the report reviewed and electronically signed by: CARTER TAMAYO MD on Jul 20 2024 1:45PM EST Authorizing ProviderResult TypeResult StatusAngela Ankush DOMAM-PAMAFinal Result * COLONOSCOPY SCREENING (02/15/2024 10:05 AM EST)Anatomical RegionLaterality ModalityOtherSpecimen (Source)Anatomical Location / LateralityCollection Method / VolumeCollection TimeReceived Time02/15/2024 10:05 AM EST Narrative 02/15/2024 10:36 AM EST [facility] Patient Name: Emily Parker Procedure Date: 02/15/2024 10:05 AM Date of : 1955 Age: 68 Gender: Female Race: White Attending MD: Brant Campbell MD, [id number] Procedure: ? Colonoscopy Referring MD: ?KRISTIN LECHUGA, DO Providers: ? Brant Campbell MD, Salomon Lora CRNA (Valet Service Attendant) Indications: ? High risk colon cancer surveillance: Personal history ? of colonic polyps Findings: ?The perianal and digital rectal examinations were ? normal. ? There was evidence of a prior end-to-side ileo-colonic ? anastomosis in the ascending colon. This was patent ? and was characterized by healthy appearing mucosa. The ? anastomosis was traversed. ? The terminal ileum appeared normal. ? The colon (entire examined portion) appeared normal. ? A few small-mouthed diverticula were found in the ? sigmoid colon. Patient Profile: ? This is a 68 year old female. Refer to note in patient ? chart for documentation of history and physical. Last ? Colonoscopy: November 2018. Impression: ?- Patent end-to-side ileo-colonic anastomosis, ? characterized by healthy appearing mucosa. ? - The examined portion of the ileum was normal. ? - The entire examined colon is normal. ? - Diverticulosis in the sigmoid colon. ? - No specimens collected. Recommendation: ?- Patient has a contact number available for ? emergencies. The signs and symptoms of potential ? delayed complications were discussed with the patient. ? Return to normal activities tomorrow. Written ? discharge instructions were provided to the patient. ? - Resume previous diet. ? - Continue present medications. ? - Repeat colonoscopy in 5 years for surveillance. ? - Return to primary care physician as previously ? scheduled. Medicines: ? See the Anesthesia note for documentation of the ? administered medications Procedure: ? Pre-Anesthesia Assessment: ? - Prior to the procedure, a History and Physical was ? performed, and patient medications and allergies were ? reviewed. The patient is competent. The risks and ? benefits of the procedure and the sedation options and ? risks were discussed with the patient. All questions ? were answered and informed consent was obtained. ? Patient identification and proposed procedure were ? verified by the physician, the nurse and the ? continuous churn buttermaker in the pre-procedure area in the endoscopy ? suite. Mental Status Examination: alert and oriented. ? Airway Examination: normal oropharyngeal airway and ? neck mobility. Respiratory Examination: clear to ? auscultation. CV Examination: normal. Prophylactic ? Antibiotics: The patient does not require prophylactic ? antibiotics. Prior Anticoagulants: The patient has ? taken no anticoagulant or antiplatelet agents. ASA ? Grade Assessment: III - A patient with severe systemic ? disease. After reviewing the risks and benefits, the ? patient was deemed in satisfactory condition to ? undergo the procedure. The anesthesia plan was to use ? monitored anesthesia care (MAC). Immediately prior to ? administration of medications, the patient was ? re-assessed for adequacy to receive sedatives. The ? heart rate, respiratory rate, oxygen saturations, ? blood pressure, adequacy of pulmonary ventilation, and ? response to care were monitored throughout the ? procedure. The physical status of the patient was ? re-assessed after the procedure. ? - Sedation was administered by an anesthesia ? professional. Deep sedation was attained. ? After I obtained informed consent, the scope was ? passed under direct vision. Throughout the procedure, ? the patient's blood pressure, pulse, and oxygen ? saturations were monitored continuously. Provation ? AI/GI Genius was used during withdrawal. The ? COLONOSCOPE was introduced through the anus and ? advanced to the ileocolonic anastomosis. The ? colonoscopy was performed without difficulty. The ? patient tolerated the procedure well. The quality of ? the bowel preparation was good. The terminal ileum, ? the rectum and ileo-colonic anastomosis were ? photographed. Complications: ? No immediate complications. Procedure Code(s): ? --- Professional --- ? 64838, Colonoscopy, flexible; diagnostic, including ? collection of specimen(s) by brushing or washing, when ? performed (separate procedure) Diagnosis Code(s): ? --- Professional --- ? Z86.010, Personal history of colonic polyps ? Z98.0, Intestinal bypass and anastomosis status ? K57.30, Diverticulosis of large intestine without ? perforation or abscess without bleeding CPT copyright 2020 [employer]. All rights reserved. The codes documented in this report are preliminary and upon relationship mgr review may be revised to meet current compliance requirements. Brant Campbell MD 02/15/2024 10:36:34 AM This report has been signed electronically. Number of Addenda: 0 Note Initiated On: 02/15/2024 10:05 AM Authorizing ProviderResult TypeResult StatusMousab Adrian Kohler, MDDIGESTIVE DISEASE Final Result * DXA-AXIAL SKELETON (02/06/2024 2:19 PM EST)ComponentValueRef RangeTest Method Analysis TimePerformed AtPathologist SignatureLOWEST T-SCORE-2.2[facility] RADIOLOGYAnatomical RegionLateralityModalityOtherSpecimen (Source)Anatomical Location / LateralityCollection Method / VolumeCollection TimeReceived Time 02/06/2024 2:19 PM EST Impressions 02/06/2024 2:29 PM EST IMPRESSION: THE LOWEST T-SCORE IS -2.2 ??IN THE LEFT HIP 1) DIAGNOSIS (based on BMD alone): ??OSTEOPENIA Caution: Medical conditions other than osteoporosis may cause low bone density, such as osteomalacia or renal osteodystrophy. ?? Clinical correlation is necessary. 2) FRACTURE RISK (Based on FRAX) ?10-year absolute fracture risk: ? - major osteoporotic fracture = 11.0 % ? - hip fracture = 1.9 % ?- A diagnosis of Osteoporosis, ??a 10 year probability of hip fracture greater ?than or equal to 3% or a 10 year probability of any major osteoporosis-related ?fracture greater than or equal to 20% should be considered for ?treatment. ?- DXA scanner generated FRAX calculations may slightly differ from ?online FRAX calculations due to differences in software versions. - All recommendations and calculations are to be considered as ?? guidelines and should not replace sound clinical judgement - Caution: Fracture risk may be increased independent of BMD in ??patients with corticosteroid use, age greater than 65 years, or a ??history of prior fragility fracture. RECOMMENDATIONS: Follow-up in 2 years or as clinically indicated. ??Patients that are taking corticosteroids, are transplant recipients or have hyperparathyroidism should have annual follow-up. ??Follow-up scans should always be done on the same machine for accurate comparison. FOR MORE INFORMATION ABOUT DIAGNOSIS AND TREATMENT: [facility] Osteoporosis and Metabolic Bone Disease:? www.ccf.org/arthritis/osteo National Osteoporosis Foundation:? www.nof.org International Society of Clinical Densitometry www.iscd.org Manufacturing Manager: NAOMI Transcribe Date/Time: Jan ??2023 ??2:21P Dictated by : ABHI GILLIAM MD This examination was interpreted and the report reviewed and electronically signed by: ABHI GILLIAM MD on Jan ??2023 ??2:27PM ??EST Narrative 02/06/2024 2:29 PM EST * * *Final Report* * * DATE OF EXAM: Jan ??2023 ??2:19PM ?? NWB ?? 0804 ??- ??BD DXA - AXIAL SKELETON ??/ PROCEDURE REASON: Postmenopausal ? * * * * Physician Interpretation * * * * EXAMINATION: DXA BONE DENSITOMETRY BD DXA - AXIAL SKELETON PATIENT DEMOGRAPHICS: ??Age: 68 years, Gender: Female SCANNER INFORMATION: DXA Model: OnGreen [id number] Date Scanned: ??02/06/2024 2:19 PM CLINICAL HISTORY: ??DIAGNOSTIC ?? Postmenopausal. RISK FACTORS FOR OSTEOPOROSIS AND ASSOCIATED FRACTURES REPORTED BY THIS PATIENT: Please refer to Bone Health Questionnaire in the EMR CURRENT THERAPY: Please refer to Bone Health Questionnaire in the EMR TECHNICAL LIMITATIONS: Degenerative disease of the spine RESULTS: Lumbar Spine (L1, L2, L3, L4): Total BMD: 1.194 ??g/cm2, T-score: 0.1 , Z-score: 0.6 Right Femoral Neck: 0.832 ??g/cm2 , T-score -1.5, Z-score -0.7 Right Total Hip: 0.777 ??g/cm2 , T-score -1.8, Z-score ??-1.4 Left Femoral Neck: 0.727 ??g/cm2 , T-score -2.2, Z-score -1.5 Left Total Hip: ??0.767 ??g/cm2 , T-score -1.9 , Z-score -1.5 No comparison data - the patient has not had a previous bone density in the [facility] or the previous bone density was performed on a different DXA machine (new, updated model or different location) within the [employer]. VERTEBRAL FRACTURE ASSESSMENT Not performed. TRABECULAR BONE ASSESSMENT TBS not performed: BMI outside recommended range for calculation of TBS. Procedure Note Provider, [facility] [place] - 02/06/2024 * * *Final Report* * * DATE OF EXAM: Feb 06 2024 2:19PM [facility] 0804 - BD DXA - AXIAL SKELETON / PROCEDURE REASON: Postmenopausal * * * * Physician Interpretation * * * * EXAMINATION: DXA BONE DENSITOMETRY BD DXA - AXIAL SKELETON PATIENT DEMOGRAPHICS: Age: 68 years, Gender: Female SCANNER INFORMATION: DXA Model: OnGreen [id number] Date Scanned: 02/06/2024 2:19 PM CLINICAL HISTORY: DIAGNOSTIC Postmenopausal. RISK FACTORS FOR OSTEOPOROSIS AND ASSOCIATED FRACTURES REPORTED BY THIS PATIENT: Please refer to Bone Health Questionnaire in the EMR CURRENT THERAPY: Please refer to Bone Health Questionnaire in the EMR TECHNICAL LIMITATIONS: Degenerative disease of the spine RESULTS: Lumbar Spine (L1, L2, L3, L4): Total BMD: 1.194 g/cm2, T-score: 0.1 , Z-score: 0.6 Right Femoral Neck: 0.832 g/cm2 , T-score -1.5, Z-score -0.7 Right Total Hip: 0.777 g/cm2 , T-score -1.8, Z-score -1.4 Left Femoral Neck: 0.727 g/cm2 , T-score -2.2, Z-score -1.5 Left Total Hip: 0.767 g/cm2 , T-score -1.9 , Z-score -1.5 No comparison data - the patient has not had a previous bone density in the [employer] or the previous bone density was performed on a different DXA machine (new, updated model or different location) within the [employer]. VERTEBRAL FRACTURE ASSESSMENT Not performed. TRABECULAR BONE ASSESSMENT TBS not performed: BMI outside recommended range for calculation of TBS. IMPRESSION IMPRESSION: THE LOWEST T-SCORE IS -2.2 IN THE LEFT HIP 1) DIAGNOSIS (based on BMD alone): OSTEOPENIA Caution: Medical conditions other than osteoporosis may cause low bone density, such as osteomalacia or renal osteodystrophy. Clinical correlation is necessary. 2) FRACTURE RISK (Based on FRAX) 10-year absolute fracture risk: - major osteoporotic fracture = 11.0 % - hip fracture = 1.9 % - A diagnosis of Osteoporosis, a 10 year probability of hip fracture greater than or equal to 3% or a 10 year probability of any major osteoporosis-related fracture greater than or equal to 20% should be considered for treatment. - DXA scanner generated FRAX calculations may slightly differ from online FRAX calculations due to differences in software versions. - All recommendations and calculations are to be considered as guidelines and should not replace sound clinical judgement - Caution: Fracture risk may be increased independent of BMD in patients with corticosteroid use, age greater than 65 years, or a history of prior fragility fracture. RECOMMENDATIONS: Follow-up in 2 years or as clinically indicated. Patients that are taking corticosteroids, are transplant recipients or have hyperparathyroidism should have annual follow-up. Follow-up scans should always be done on the same machine for accurate comparison. FOR MORE INFORMATION ABOUT DIAGNOSIS AND TREATMENT: [facility] Osteoporosis and Metabolic Bone Disease:? www.ccf.org/arthritis/osteo National Osteoporosis Foundation:? www.nof.org International Society of Clinical Densitometry www.iscd.org Manufacturing Manager: NAOMI Transcribe Date/Time: Feb 06 2024 2:21P Dictated by : ABHI GILLIAM MD This examination was interpreted and the report reviewed and electronically signed by: ABHI GILLIAM MD on Feb 06 2024 2:27PM EST Authorizing ProviderResult TypeResult StatusAngefreeman LEVINE-PAMAFinal Result * HEPATITIS C ANTIBODY IA WITH CONFIRMATION (10/06/2022 3:03 PM EDT)Component ValueRef RangeTest MethodAnalysis TimePerformed AtPathologist SignatureHep C Antibody AIKcvhqynmJtyawrov93/09/2023 9:21 PM EDTCMERCY HEALTH KINGS MILLS [facility] LABComment:The result suggests no evidence of active infection with Hepatitis C virus. Should recent infectionbe suspected, repeat testing may be considered 4-6 weeks after this draw.Specimen (Source)Anatomical Location / Laterality Collection Method / VolumeCollection TimeReceived TimeBloodBLOOD SPECIMEN / UnknownVenipuncture / Gkwlwaz0510/06/2022 3:03 PM EDT10/06/2022 3:03 PM EDT Narrative Authorizing ProviderResult TypeResult StatusGanabeel Clay DNP,MSN,DATA ENTRY TECHNICIAN-C LABORATORYFinal ResultPerforming OrganizationAddressCity/State/ZIP CodePhone Number [facility] [address] [phone], * PAP FLUID CERVICAL SCREENING (10/30/2019 8:16 AM EDT)ComponentValueRef Range Test MethodAnalysis TimePerformed AtPathologist SignatureTranscription ADDITIONAL PROCEDURES PRESENT Specimen originated from [facility] Specimen #: [id number] Submitting Physician: DARREN MONTES PA-C SPECIMEN SUBMITTED A: CERVICAL, SCREENING, FLUID FINAL DIAGNOSIS A. CERVICAL, SCREENING, FLUID Satisfactory for interpretation. Negative for intraepithelial lesion or malignancy. Acute inflammation. This specimen has been analyzed by the ThinPrep Imaging System, an automated imaging and review system, which assists the laboratory in evaluating cells on ThinPrep Pap tests. ??Following automated imaging, selected quiros from every slide are reviewed by a space systems operations superintendent. DELIA Reza(ASCP) ? (Electronic Signature) ADDITIONAL PROCEDURE(S) HUMAN PAPILLOMA VIRUS ? Date Ordered: ??10/31/2019 ? Date Reported: ??11/02/2019 Procedure Results and Interpretation Negative for HPV DNA high risk type 16 by PCR. Negative for HPV DNA high risk type 18 by PCR. Negative for HPV DNA high risk types: 31,33,35,39,45,51,52,56,58,59,66,68 by PCR. This test was developed and its performance characteristics determined by [facility]'s [facility] [place] ([facility]). It has not been cleared or approved by the FDA. -[facility] is regulated under CLIA as qualified to perform high-complexity testing. This test is used for clinical purposes. It should not be regarded as investigational or for research. CLINICAL DATA ROUTINE EXAM, HPV Testing: Yes, automatic HPV patients over 30 Date of Last Menstrual Period: 02/09/2012 Menstrual History: Post-Menopausal STAINS A: ??CERVICAL, SCREENING, FLUID ? THIN PREP FISHER DIVING Mian Huang M.D., Psychiatric Attendant Date of Report: 11/06/2019 Date of Procedure: 10/30/2019 Date of Receipt: 10/31/2019 Submitted by: DARREN MONTES PA-C Location: [facility] Diagnostic interpretation performed at [facility], [address] [place] [address]. ?? CLIA Number: [id number] ? The Pap Smear is a screening test for cervical cancer. False negative results occur with all screening tests, emphasizing the need for rescreening at recommended intervals, and clinical correlation.[facility] Specimen (Source)Anatomical Location / LateralityCollection Method / Volume Collection TimeReceived TimeSpecimen from uterine cervix (specimen)CERVICAL / Seabimk2110/30/2019 8:16 AM EDT10/31/2019 11:48 AM EDT Narrative Authorizing ProviderResult TypeResult StatusLatalib KWON-CCYTOLOGYEdited Result - FinalPerforming OrganizationAddressCity/State/ZIP CodePhone Number [facility] [address] [place] [address] from Last 3 Months or Most Recently Relevant to Health Maintenance Insurance MemberSubscriberPlan / Payer (Effective 2024-Present)Name:Emily Aragon Relation to Subscriber:SelfName:Emily Aragon Payer ID:Not on file Type:HMO Address: [address] [place] [phone] * Guarantor: [facility]Account TypeRelation to PatientDate of BirthPhoneBilling AddressCorporateOther [address] [place] [address] Mail Code RK[address] [place] [address] Advance Directives * DNR-CCA (Latest Code Status on File) Date ActivatedDate BboburusguaSdnbdorg24/4/2023 4:44 PM01/18/2023 2:46 PM QuestionAnswerCommentsDNR Order Discussed With:* Patient * Full Code Date ActivatedDate InactivatedComments11/19/2022 10:46 PM11/27/2022 4:05 PM Care Teams Team MemberRelationshipSpecialtyStart [place] [address] [place] [address] PCP - GeneralInternal Guckmuhf23/10/13 [place] [address] [place], [place] [phone] Ophthalmology11/21/18 Brant Campbell I, MD [address] [place] [address] [address] [facility] [address] [place] [address] Gastroenterology05/27/22 [place] [address] [place] [address] Home Care ProviderColon and Rectal Surgery11/16/22 Darren Montes, PAElianaC [address] [facility] [address] [place] [address] Care PartnerInternal Wzlqgedo05/9/24
--- OUTSIDE RECORDS SUMMARY | 2025-01-03 13:34 | XMS_ITS | Encounter Summary ---
Author Organization [facility] Address [address] [place] [address] Phone Care Team Providers Care Knockout Worker Name Role Phone Margarita Lechuga DO Primary Care Provider Encounter Details DateTypeDepartmentCare Team (Latest Contact Info)Djfvuksbkis92/30/2025Travel Social History Tobacco UseTypesPacks/DayYears UsedDateSmoking Tobacco: NeverSmokeless Tobacco: NeverAlcohol UseStandard Drinks/WeekCommentsNot Currently0 (1 standard drink = 0.6 oz pure alcohol)CommentsUnknownSex and Gender InformationValueDate RecordedSex Assigned at IbhtkIwewwg57/12/2024 7:26 PM EDTLegal SexFemale 01/22/2022 4:26 PM ESTGender UerobildGabngc95/12/2024 7:26 PM EDTSexual OrientationNot on filedocumented as of this encounter Functional Status documented as of this encounter Plan of Treatment DateTypeDepartmentCare Team (Latest Contact Info)Nyaipqdwnhe59/07/2025 10:20 AM ESTOffice Visit [facility] [address] [place] [id number] Roger Hearn DO [address] [facility] [address] [place] [address] 01/08/2025 11:30 AM ESTTreatment [facility] [address] [facility] [address] [place] [address] [place] [address] [place], [place] [id number] 01/15/2025 11:30 AM ESTTreatment [facility] [address] [place] [phone] [place] [address] [facility] [address] [place] [address] 02/12/2025 9:20 AM ESTOffice Visit [facility] [address] [facility] 5th [place] [phone] [place] [address] [place] [address] documented as of this encounter Visit Diagnoses Not on filedocumented in this encounter Additional Health Concerns AssessmentNoted TimeA fall risk assessment has been completed for the patient 03/02/2024 8:28 AM ESTdocumented as of this encounter Care Teams Team MemberRelationshipSpecialtyStart [place] [address] [facility] [address] [place] [address] PCP - Zcjmmxa86/1/22documented as of this encounter
--- OUTSIDE RECORDS SUMMARY | 2025-01-03 13:34 | XMS_ITS | Clinical Summary ---
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 03/14/2024 1:03 AM [facility] LABCreatinine0.760.50 - 1.05 mg/dL LAB CHEMISTRY METHOD 03/14/2024 1:03 AM [facility] WMFlDDK28>60 mL/min/1.73m*2 LAB CHEMISTRY METHOD 03/14/2024 1:03 AM [facility] LABComment: Calculations of estimated GFR are performed using the 2020 CKD-EPI Study Refit equation without therace variable for the IDMS-Traceable creatinine methods. https://jasn.asnjournals.org/content/early//ASN.5930387343 Calcium9.18.6 - 10.6 mg/dL LAB CHEMISTRY METHOD 03/14/2024 1:03 AM [facility] LABAlbumin3.93.4 - 5.0 g/dL LAB CHEMISTRY METHOD 03/14/2024 1:03 AM [facility] LABAlkaline Xozgjntzufl9289 - 136 U/L LAB CHEMISTRY METHOD 03/14/2024 1:03 AM [facility] LABTotal Protein7.36.4 - 8.2 g/dL LAB CHEMISTRY METHOD 03/14/2024 1:03 AM [facility] TJZTHB705 - 39 U/L LAB CHEMISTRY METHOD 03/14/2024 1:03 AM [facility] LABBilirubin, Total0.40.0 - 1.2 mg/dL LAB CHEMISTRY METHOD 03/14/2024 1:03 AM [facility] TXEVDW928 - 45 U/L LAB CHEMISTRY METHOD 03/14/2024 1:03 AM [facility] LABComment:Patients treated with Sulfasalazine may generate falsely decreased results for ALT.Specimen (Source)Anatomical Location / LateralityCollection Method / VolumeCollection TimeReceived TimeBloodVenous blood specimen / UnknownVenipuncture / Cprroou6803/13/2024 4:36 PM EST03/13/2024 4:36 PM EST Narrative Authorizing ProviderResult TypeResult StatusValentin Valentin MDTREGO [facility] BLOOD ORDERABLESFinal ResultPerforming OrganizationAddressCity/State/ZIP CodePhone Number [facility] [address] [place] [address] from Last 3 Months or Most Recently Relevant to Health Maintenance Insurance * Guarantor: Emily Cronin TypeRelation to PatientDate of BirthPhone Billing AddressPersonal/LgescpNkmf[address] [place] [address] * Guarantor: Emily Cronin TypeRelation to PatientDate of BirthPhone Billing AddressPersonal/ZcbboeMwfx[address] [place], [place] [id number] Advance Directives For more information, please contact: [phone] (Available ) TypeDate RecordedPatient RepresentativeExplanationHealthcare Power of Atty 11/18/2021Healthcare Power of Atty104/12/2023 * Full Code (Latest Code Status on File) Date ActivatedDate WmqbqonwrzlOtcztxor04/12/2024 5:43 AMQuestionAnswerComments Plan of Care:* Code Status Discussion Completed Decision Maker:* Patient * Full Code Date ActivatedDate InactivatedComments11/27/2022 12:30 AM11/27/2022 5:08 PM QuestionAnswerCommentsPlan of Care:* Code Status Discussion Completed Decision Maker:* Patient Care Teams Team MemberRelationshipSpecialtyStart [place] [address] [address] [place] [address] [facility]11/28/21
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
--- OUTSIDE RECORDS SUMMARY | 2025-01-03 13:34 | XMS_ITS | Patient Health Record ---
Author Organization [facility] [place] Address [address] [place] [address] Care Team Providers Care Pesticide Chemist Name Role Phone None, Unknown or Primary Care Provider Unavailab Norma Huang Unavailable [phone] Allergies Allergen (clinical drug ingredient) Drug/Non Drug Allergy documented on EMR Reaction Allergy Type Onset Date Status KeflexUnknownDrug AllergyActivecarbamazepineTEGretolUnknownDrug AllergyActive amoxicillinAmoxicillinUnknownDrug AllergyActiveclindamycinClindamycinUnknownDrug AllergyActivePenicillinUnknownDrug AllergyActive Reason For Referral No Information Medications Medication SIG (Take, Route, Frequency, Duration) Notes Start Date End Date Status Zoloft 100 MG 1 tablet Orally Once a day 07/07/2023ctiveVitamin D 25 MCG (1000 UT)1 tablet Orally Once a day07/07/2023 ActiveAspirin 81 81 MG1 tablet Orally Once a day07/07/2023ctiveMetoprolol Succinate 25 MG1/2 capsule Orally Once a day07/07/2023ctiveLipitor 40 MG1 tablet Orally Once a day07/07/2023ctiveProtonix 40 MG1 tablet Orally Once a day 07/07/2023ctivePlaquenil 200 MGas directed Gmldmd5607/07/2023ctiverOPINIRole HCl 0.5 MG1 tablet 1 to 3 hours before bedtime Orally Once a day07/07/2023ctive Vital Signs Heart Rate 88 /min 04/16/2024 Eduizskaixi43.2 degrees Ffopdtvkpd45/17/4319Xqnzmwot46 %04/16/20242614Aeythd77 in 04/16/20247868Wmrffb269 lbs11/18/8616CIN11.63 kg/m201/16/2024 Encounters Encounter Location Date Provider Diagnosis [facility] ([facility]) [address] [place] [address] [place] [address] 01/16/2024 [place] Pain in right toe(s) M79.674 and Pain in left toe(s) M79.675 [facility] ([facility]) [address] [place] [address] 04/16/2024 [place] Pain in left toe(s) M79.675 and Pain in right toe(s) M79.674 Assessments Encounter Date Diagnosis (ICD Code) Assessment Notes Treatment Notes Treatment Clinical Notes Section Notes 01/16/2024 Pain in right toe(s) (ICD-10 - M 79.674) 01/16/2024ain in left toe(s) (ICD-10 - M79.675)04/16/2024Pain in left toe(s) (ICD-10 - M79.675)04/16/2024Pain in right toe(s) (ICD-10 - M79.674) Plan Of Treatment No Information Insurance Providers Payer Name Payer Address Payer Phone Subscriber Number Group Number Insured Name Patient Relationship to Insured Coverage Start Date Coverage End Date O ADVANTAGE CHOICE MEDICARE HMO [address] [place] [phone] [id number] Emily Cronin Self - patient is the insured [address] [facility] [address] [place] [id number], BeverlySelf - patient is the insured Medical (General) History Medical History History ICD Code Arthritis epilepsyheart diseasehigh blood pressurehypercholesterolemialupusSurgical History Surgery Date(Month/Year) ileostomy ORIF rt shoulderrotator cuff repairORIF left humerousEx Fix bimaleolar fx left and rightremoval fixatoresreverasl ileostomyrt temporal lobectomyHospitalization History Reason Date(Month/Year) see above
--- NOTE | 2025-01-03 13:53 | PM.WCHP ---
Wound Care H&P: HPI History of Present Illness Narrative: Ms. Cronin is a very pleasant 68-year-old female with history of previous ankle trauma who presents for routine nail care. The patient states her toenails are thick and painful and she is unable to trim them on her own due to stiffness in the left ankle and bilateral hip arthritis. Exam Narrative: Exam Narrative: Derm: Skin is diffusely dry, thin, and shiny. Toenails 1 through 10 are elongated with ingrowing of the great toenails and the medial nail borders. No evidence of paronychia. Toenails 2 through 5 are thickened and mycotic on both feet with subungual debris. Vascular: DP pulses are 2/4 bilaterally. PT pulses are nonpalpable bilaterally. Capillary refills less than 3 seconds and toes are nice and warm to touch. Superficial varicosities are present. There is 3+ nonpitting edema of bilateral lower legs and ankles. Digital hair is absent bilaterally. Neuro: Protective sensation intact to 5/5 areas tested with a monofilament on each foot. Vibratory sensation is intact bilaterally. Achilles deep tendon reflex is 1+ bilaterally. Musculoskeletal: Healed surgical scars noted on bilateral ankles. No pain with palpation of the feet or ankles. Assessment and Plan Assessment and Plan (1) Tinea unguium: (2) Diminished pulses in lower extremity: (3) Nail dystrophy: (4) Bilateral lower extremity edema: Plan Routine nail care performed. Follow-up in 3 months or as needed. Acute Procedures Podiatry Nail Debridement Class B Findings Absent posterior tibial pulse: bilateral Advanced trophic changes as evidenced by any three of the following: decreased hair growth, nail changes (thickening) and skin texture (thin or shiny) Class C Findings Claudication: No Temperature changes: No Edema: Yes Nail debridement paresthesia (abnormal spontaneous sensations in the feet): No Burning: No Qualifies If: Qualifiers If:: A patient qualifies for nail debridement if they have: 1 class A finding (Q7) 2 class B findings (Q8) OR 1 class B & 2 class C findings in addition to a primary condition (Q9) Nail Procedure Nail Procedure Nail procedure: other (Toenail debridement toenails 1 through 10) Location (toes): left and right Procedure successful: Yes Patient tolerated procedure: well and no complications Additional comments: Toenails 1 through 10 were sharply debrided with nail nippers without incident. She noted pain relief post procedure.
== END 2025-01-03 13:32 | disposition home or self-care (01) ==
LOC: WC 13:31
PROVIDERS: Visit Provider Physician Assistant
DX: B35.1 Tinea unguium (principal); R09.89 Other specified symptoms and signs involving the circulatory and respiratory systems; L60.8 Other nail disorders; R60.0 Localized edema